=== PATIENT | male | born 1980 | race Caucasian/White ===

== ENCOUNTER 2016-07-11 18:10 | Emergency (ER) | payer BC ==
[2016-07-11 18:17] VITALS: BP 150/84; PULSE 85; TEMP 98.1; BMI 28.1
--- NOTE | 2016-07-11 18:55 | PDOC ---
History of Present Illness - General Chief Complaint: Rash Stated Complaint: RASH Time Seen by Provider: 07/11/16 18:20 History Source: Patient Exam Limitations: No Limitations - History of Present Illness Initial Comments: 07/11/16 18:51 36-year-old male presents to the emergency room with complaints of rash to the left buttock. Patient states similar rash that occurred about 5 months ago and was prescribed topical antibiotics by his PCP. Patient states no history of MRSA , recent travel, recent insect bites. Patient also denies diabetes, injectable medication, or radiation of pain. Timing/Duration: getting worse Severity: mild Associated Symptoms: reports: rash Past History - Past Medical History Allergies/Adverse Reactions: Allergies Allergy/AdvReac Type Severity Reaction Status Date / Time No Known Allergies Allergy Verified 07/11/16 18:16 Home Medications: Ambulatory Orders Montelukast Na [Singulair -] 10 mg PO HS 12/27/12 Budesonide/Formeterol Fumarate [SYMBICORT 160/4.5mcg -] 1 inh PO BID 09/10/14 Verapamil HCl 120 mg PO BID 09/10/14 Anemia: No Asthma: No Cancer: No Cardiac Disorders: Yes (AFIB) CVA: No COPD: No CHF: No Dementia: No Diabetes: No GI Disorders: No Disorders: No HTN: Yes Hypercholesterolemia: No Liver Disease: No Seizures: Yes (during infancy) Thyroid Disease: No - Surgical History Abdominal Surgery: No Appendectomy: No Cardiac Surgery: No Cholecystectomy: No Lung Surgery: No Neurologic Surgery: No Orthopedic Surgery: No - Immunization History Immunization Up to Date: Yes - Psycho/Social/Smoking Cessation Hx Anxiety: No Suicidal Ideation: No Smoking Status: No Smoking History: Never smoked Years of Tobacco Use: 9 Have you smoked in the past 12 months: No Number of Cigarettes Smoked Daily: 0 If you are a former smoker, when did you quit?: 1 year Information on smoking cessation initiated: No 'Breaking Loose' booklet given: 10/19/11 Hx Alcohol Use: No Drug/Substance Use Hx: No Substance Use Type: None Hx Substance Use Treatment: No Patient Lives Alone: No Review of Systems - Review of Systems Able to Perform ROS?: Yes Constitutional: No: Symptoms Reported ABD/GI: No: Symptoms Reported Musculoskeletal: No: Symptoms Reported Integumentary: Yes: Erythema, Lumps, Rash Endocrine: No: Symptoms Reported *Physical Exam - Vital Signs Last Vital Signs Temp Pulse Resp BP Pulse Ox 98.1 F 85 18 150/84 99 07/11/16 18:14 07/11/16 18:14 07/11/16 18:14 07/11/16 18:14 07/11/16 18:14 - Physical Exam General Appearance: Yes: Nourished, Appropriately Dressed. No: Apparent Distress Integumentary: positive: Other (Patient with noted raised circular papule measuring 2 x 2 centimeter with multiple pinhead sized pustules to the center. Surrounding skin intact. No increased warmth. ) Neurologic: positive: Motor Strength 5/5 (ambulatory) Medical Decision Making - Medical Decision Making 07/11/16 18:54 Patient with noted erythematous papule with pustular center. Was able to open 2 of the pin head sized pustules and wound culture collected. Patient be discharged home with Bactrim and recommended to apply soaks *DC/Admit/Observation/Transfer Diagnosis at time of Disposition: Abscess - Discharge Dispostion Disposition: HOME Condition at time of disposition: Good - Referrals Referrals: Don Francis [Primary Care Provider] - - Patient Instructions Printed Discharge Instructions: DI for Skin Abscess Additional Instructions: Please take antibiotics as prescribed until completed. Please do squeeze or manipulate area. Please apply hot soaks for the next 3 days at least 15 minutes of constant heat 4 times a day.
== END 2016-07-11 18:59 | disposition home or self-care (01) ==
LOC: JERFT 18:10
DX: L02.31 Cutaneous abscess of buttock (principal)
CPT/HCPCS: 87070; 87205; 99281-25